=== PATIENT | female | born 1995 | race Caucasian/White ===

== ENCOUNTER 2016-08-28 07:32 | Day surgery (SDC) | payer BC ==
[2016-08-27 10:22] LABS: ASCORBIC ACID (UR NOT ORDER) NEG (NEG); BILIRUBIN, URINE NEGATIVE (NEG); KETONE, URINE NEGATIVE (NEG); LEUKOCYTE ESTERASE(NOT OR SMALL (NEG); WBC (NOT ORDERED) (RFLEX) 3 (0-5)
--- NOTE | ~2016-08-28 | OP ---
Record Of Operation [facility] [address] [place]. [address] NAME: SHANKAR CLAY : [birth year] STATUS : REG [facility]#: [id number] AGE: 20 ADM/REG DATE : 08/28/16 MR#: [id number] REPORT SERV DATE: 08/28/16 DICTATED BY: MATEUS HELLER DATE: 08/28/16 REPORT STATUS : Draft TRANSCRIBED BY: MODKatt DATE: 08/28/16 DATE OF PROCEDURE: 08/28/2016 TITLE OF OPERATIONS: Cystourethroscopy, cystogram, and left retrograde pyelogram. PREOPERATIVE DIAGNOSIS: Chronic left pyelonephritis. POSTOPERATIVE DIAGNOSIS: Chronic left pyelonephritis. INDICATIONS: Ms Clay is a 20-year-old female with recurrence of bladder and kidney infections. She had a negative CT scan for small hemorrhagic cyst in the left side. She has had recurrent pyelonephritis. She is here for cystogram to rule out vesicoureteral reflux and a retrograde pyelogram to make sure the calcification in the kidney is not in the renal pelvis or calices. ANESTHESIA: General. COMPLICATIONS: None. IMPLANTS: None. SPECIMENS: None. NARRATIVE: The patient was brought to the operating room, identified by a wristband. General anesthesia was induced, and Ancef was given for preoperative antibiotics. She was placed in the dorsal lithotomy position, prepped and draped in the sterile fashion. A 16- Uzbek Guerrero catheter was placed into her bladder. The balloon was inflated to 10 mL of sterile water. A cystogram was performed with approximately 500 mL of contrast. The bladder distended in a normal fashion. There was absolutely no vesicoureteral reflux. The bladder was drained. Bladder capacity was 500 mL. There was no retained contrast anywhere. The catheter was removed. A rigid cystoscope was placed into her urethra and into her bladder. The bladder was systematically inspected with the 30 and 70 degree lens and found to be normal. The left ureteral orifice was identified and cannulated with a Sensor wire. Retrograde pyelogram was shot, which showed normal ureter, renal pelvis, and kidney. There were no filling defects or concern for a stone or foreign body. I elected to not perform ureteroscopy at this point. The bladder was then drained. The patient was awoken from anesthesia, and transferred to the recovery room in stable condition. I will put her on suppressive Macrobid for three months and see her back at that time. [place]/ESTEFANY Mateus Heller MD Record Of Operation [address] [place]. [address] NAME: SHANKAR CLAY : [birth year] STATUS : REG [facility] PAT#: [id number] AGE: 20 ADM/REG DATE : 08/28/16 MR#: [id number] REPORT SERV DATE: 08/28/16 DICTATED BY: MATEUS HELLER DATE: 08/28/16 REPORT STATUS : Draft TRANSCRIBED BY: ESTEFANY DATE: 08/28/16 / [id number] CC: Mateus Heller MD
[~2016-08-28 07:32] MED LIST: DEPO INJ
== END 2016-08-28 13:39 | disposition home or self-care (01) ==
LOC: SDC 07:32
PROVIDERS: Urology
PROC: BT1FYZZ Fluoroscopy of Left Kidney, Ureter and Bladder using Other Contrast (ICD-10-PCS; principal; 2016-08-28 10:15)
DX: N11.9 Chronic tubulo-interstitial nephritis, unspecified (principal)
CPT/HCPCS: 74420; 81001; 84703; 87086; C1758; J0690; J1885; J2250; J2405; J3010; Q9967